=== PATIENT | female | born 1945 | race Hispanic/Latino ===

== ENCOUNTER 2019-04-13 19:43 | Emergency (ER) | payer MEDICARE, MEDICAID ==
--- NOTE | 2019-04-13 20:19 | Emergency Department Report ---
Blank Doc - Documentation Documentation: 73 y old female with hx of NB presents to Ed cc of right nostril nose bleed fior und this afternoon, resolved on its own with applied pressure No hx of bleeding disorders, on Rivaraxiban for A fib
[2019-04-13 20:58] LABS: Basophils % (Auto) 0.4 % (0.0-1.8); Hematocrit 29.9 % (30.3-42.9); Hemoglobin 9.5 gm/dl (10.1-14.3); Lymphocytes # (Auto) 1.4 K/mm3 (1.2-5.4); Lymphocytes % (Auto) 19.2 % (13.4-35.0); Mean Corpuscular HGB Conc 32 % (30-34); Mean Corpuscular Volume 82 fl (79-97); Monocytes # (Auto) 0.8 K/mm3 (0.0-0.8); Monocytes % (Auto) 10.8 % (0.0-7.3); Platelet Count 439 K/mm3 (140-440); Red Blood Count 3.63 M/mm3 (3.65-5.03); Red Cell Distribution Width 18.8 % (13.2-15.2)
[2019-04-13 21:08] LABS: INR 1.23 (0.87-1.13)
--- NOTE | 2019-04-13 22:13 | Emergency Department Report ---
HPI - General Chief Complaint: Nosebleed Time Seen by Provider: 04/13/19 20:13 - HPI HPI: 73 y old female with hx of NB presents to Ed cc of right nostril nose bleed around this afternoon, resolved on its own with applied pressure No hx of bleeding disorders, on blood thinners for afib. ED Past Medical Hx - Past Medical History Previous Medical History?: Yes Hx Hypertension: Yes Hx Deep Vein Thrombosis: Yes Hx Psychiatric Treatment: (depression) Additional medical history: dementia. colostomy bag - Surgical History Past Surgical History?: Yes Additional Surgical History: colostomy - Social History Smoking Status: Current Every Day Smoker Substance Use Type: None ED Review of Systems ROS: Stated complaint: NOSE BLEED Other details as noted in HPI Comment: All other systems reviewed and negative Constitutional: denies: chills ENT: other (dry blood right nostril). denies: ear pain Respiratory: denies: cough Physical Exam - Physical Exam Vital Signs: Vital Signs 04/13/19 19:48 Temperature 98.1 F Pulse Rate 80 Respiratory 18 Rate Blood Pressure 121/69 [Right] O2 Sat by Pulse 93 Oximetry Physical Exam: ED Physical Exam - General Limitations: No Limitations General appearance: alert, in no apparent distress - Head Head exam: Present: atraumatic, normocephalic - Eye Eye exam: Present: normal appearance - ENT ENT exam: Present: mucous membranes moist, dry blood right nostril. - Neck Neck exam: Present: normal inspection - Respiratory Respiratory exam: Present: normal lung sounds bilaterally. Absent: respiratory distress - Cardiovascular Cardiovascular Exam: Present: regular rate, normal rhythm. Absent: systolic murmur, diastolic murmur, rubs, gallop - GI/Abdominal GI/Abdominal exam: Present: soft, normal bowel sounds. Absent: tenderness, r ebound, bruit, hernia - Rectal Rectal exam: Present: deferred - Extremities Exam Extremities exam: Present: normal inspection, full ROM - Back Exam Back exam: Present: normal inspection, full ROM. Absent: tenderness, CVA tenderness (R), CVA tenderness (L), muscle spasm, paraspinal tenderness, ve rtebral tenderness, rash noted - Neurological Exam Neurological exam: Present: alert, oriented X3, CN II-XII intact, normal gait, reflexes normal - Psychiatric Psychiatric exam: Present: normal affect, normal mood - Skin Skin exam: Present: warm, dry, intact, normal color. Absent: rash ED Course Vital Signs 04/13/19 19:48 Temperature 98.1 F Pulse Rate 80 Respiratory 18 Rate Blood Pressure 121/69 [Right] O2 Sat by Pulse 93 Oximetry ED Medical Decision Making - Lab Data Result diagrams: 04/13/19 20:30 - Medical Decision Making observed in E.R X 3 HRS, no more bleeding, f/u with pcp. Critical care attestation.: If time is entered above; I have spent that time in minutes in the direct care of this critically ill patient, excluding procedure time. ED Disposition Clinical Impression: Nosebleed Disposition: DC-01 TO HOME OR SELFCARE Is pt being admited?: No Does the pt Need Aspirin: No Condition: Stable Instructions: Epistaxis (ED) Referrals: MEJIA WATERS MD [Primary Care Provider] - 3-5 Days
[2019-04-13 22:31] VITALS: BP 126/82
== END 2019-04-13 22:45 | disposition home or self-care (01) ==
LOC: ED 19:43
DX: R04.0 Epistaxis (principal); I10 Essential (primary) hypertension; F17.200 Nicotine dependence, unspecified, uncomplicated; Z86.718 Personal history of other venous thrombosis and embolism
CPT/HCPCS: 36415; 85025; 85610; 85730; 99283